=== PATIENT | female | born 1990 | race Caucasian/White ===

== ENCOUNTER 2017-04-03 19:47 | Emergency (ER) | payer BC, OTHER ==
[~2017-04-03] VITALS: Ht 157.5 cm; Wt 88.0 kg
[~2017-04-03 19:47] MED LIST: OXYC-302 PO; PREN1TAB60 PO; PREN1TAB87 PO; RANI75TA12 PO
[2017-04-03 21:21] LABS: PATH.CAST-FLAG NOT PRESENT; SPERM-FLAG NOT PRESENT; SRC-FLAG NOT PRESENT; XTAL-FLAG NOT PRESENT; YLC-FLAG NOT PRESENT
[2017-04-03 21:26] LABS: BLOOD UREA NITROGEN 7 mg/dL (7-18)
[2017-04-03 21:30] LABS: ASPARTATE AMINO TRANSFERASE 15 U/L (15-37)
[2017-04-03 22:46] VITALS: BP 117/80
== END 2017-04-03 22:48 | disposition home or self-care (01) ==
LOC: ED 22:42
DX: O20.0 Threatened abortion (principal)
CPT/HCPCS: 36415; 76801; 80053; 81001; 84702; 85025; 86901; 99285

== ENCOUNTER 2017-04-06 15:20 | Emergency (ER) | payer BC ==
[~2017-04-06] VITALS: Ht 157.5 cm; Wt 88.3 kg
[2017-04-06] MEDS ORDERED: SODIUM CHLORIDE FLUSH 10ML SYR IVF ONE (15:30)
[2017-04-06] MEDS ORDERED: SODIUM CHLORIDE 0.9% 1,000ML IVBOLUS ONE (15:30)
[2017-04-06 16:40] LABS: BLOOD UREA NITROGEN 8 mg/dL (7-18)
[2017-04-06 17:50] VITALS: BP 110/72
== END 2017-04-06 17:52 | disposition home or self-care (01) ==
LOC: ED 17:01
DX: O20.0 Threatened abortion (principal)
CPT/HCPCS: 36415; 76801; 80048; 82040; 84702; 85025

== ENCOUNTER 2017-07-22 12:34 | Outpatient (CLI) | payer BC, OTHER ==
[~2017-07-22] VITALS: Ht 157.5 cm; Wt 93.2 kg
[2017-07-22 12:59] VITALS: BP 125/63
== END 2017-07-22 15:39 | disposition home or self-care (01) ==
LOC: LDOP 12:34
PROVIDERS: ATTEND Student in an Organized Health Care Education/Training Program
DX: O26.893 Other specified pregnancy related conditions, third trimester (principal); O60.03 Preterm labor without delivery, third trimester; R10.9 Unspecified abdominal pain; Z3A.28 28 weeks gestation of pregnancy
CPT/HCPCS: 36415; 59025; 81001; 82731; 87086; 99211; G0463

== ENCOUNTER 2017-10-08 13:49 | Inpatient (IN) | payer OTHER, BC ==
[~2017-10-08] VITALS: Ht 157.5 cm; Wt 99.5 kg
[2017-10-08 14:00] VITALS: BP 114/69
[2017-10-08] MEDS ORDERED: METOCLOPRAMIDE 5 MG/ML, 2ML IV ONE (14:00)
[2017-10-08] MEDS ORDERED: LACTATED RINGERS 1,000 ML IVBOLUS ONE (14:00)
[2017-10-08] MEDS ORDERED: SODIUM CITRATE/CITRIC ACID 30 ML UDC PO ONE (14:00)
[2017-10-08] MEDS ORDERED: OXYTOCIN 30U/ 0.9% NaCL 500ML 500 ML ONE (14:01)
[2017-10-08] MEDS ORDERED: NEWBORN KIT ONE (14:01)
[2017-10-08] MEDS ORDERED: SODIUM CITRATE/CITRIC ACID 30 ML UDC ONE (14:02)
[2017-10-08] MEDS ORDERED: METOCLOPRAMIDE 5 MG/ML, 2ML ONE (14:02)
[2017-10-08 14:35] LABS: HEMATOCRIT 33.8 % (34.6-47.8); HEMOGLOBIN 11.5 g/dL (11.7-16.4); WHITE BLOOD COUNT 8.6 x10^3/uL (3.4-10)
[2017-10-08] MEDS ORDERED: CALC300T5 PO (14:35)
[2017-10-08] MEDS: LACTATED RINGERS 1,000 ML IV SCH ×6 (15:12→23:53)
[2017-10-08] MEDS ORDERED: OXYTOCIN 10 UNITS/ML, 1ML ONE (15:26)
[2017-10-08] MEDS ORDERED: FENTANYL PF 100 MCG/2ML ONE (15:26)
[2017-10-08] MEDS ORDERED: ONDANSETRON 2MG/ML, 2ML ONE (15:26)
[2017-10-08] MEDS ORDERED: HYDROmorphone 2 MG/ML, 1ML ONE (15:26)
[2017-10-08] MEDS ORDERED: CEFAZOLIN 1,000 MG ONE (15:26)
[2017-10-08] MEDS: OXYTOCIN 30U/ 0.9% NaCL 500ML 500 ML IV SCH ×3 (17:02→23:53)
[2017-10-08] MEDS ORDERED: MISOPROSTOL 200 MCG TABLET PR PRN (17:30)
[2017-10-08] MEDS ORDERED: morphine SULFATE 10 MG/ML, 1ML IVPush PRN (17:30)
[2017-10-08] MEDS ORDERED: MEPERIDINE/PF 50 MG/ML IVPush PRN (17:30)
[2017-10-08] MEDS ORDERED: METOCLOPRAMIDE 5 MG/ML, 2ML IV PRN (17:30)
[2017-10-08] MEDS ORDERED: HYDROcodone/APAP 5/325 TABLET PO PRN (17:30)
[2017-10-08] MEDS ORDERED: ONDANSETRON 2MG/ML, 2ML IV PRN (17:30)
[2017-10-08] MEDS: KETOROLAC 30 MG/1 ML IM SCH ×2 (17:30→23:30)
[2017-10-08] MEDS ORDERED: BISACODYL 10 MG SUPP PR PRN (17:30)
[2017-10-08] MEDS ORDERED: ACETAMINOPHEN 325 MG TABLET PO PRN (17:30)
[2017-10-08] MEDS ORDERED: KETOROLAC 30 MG/1 ML ONE (18:36)
[2017-10-08] MEDS: KETOROLAC 30 MG/1 ML IV SCH (18:38)
[2017-10-08 19:25] VITALS: BP 116/92
[2017-10-08] MEDS: OXYcodone/APAP 5/325MG TABLET PO PRN (20:00)
[2017-10-09 00:10] VITALS: BP 110/62
[2017-10-09] MEDS: KETOROLAC 30 MG/1 ML IV SCH ×5 (00:19→23:49)
[2017-10-09] MEDS: OXYcodone/APAP 5/325MG TABLET PO PRN ×5 (00:19→20:32)
[2017-10-09] MEDS: LACTATED RINGERS 1,000 ML IV SCH ×11 (01:02→23:02)
[2017-10-09 01:16] LABS: HEMATOCRIT 31.1 % (34.6-47.8); HEMOGLOBIN 10.4 g/dL (11.7-16.4); WHITE BLOOD COUNT 13.1 x10^3/uL (3.4-10)
[2017-10-09] MEDS: OXYTOCIN 30U/ 0.9% NaCL 500ML 500 ML IV SCH ×5 (03:02→23:02)
[2017-10-09 05:15] VITALS: BP 101/53
[2017-10-09] MEDS: KETOROLAC 30 MG/1 ML IM SCH ×4 (05:30→23:30)
[2017-10-09 06:45] VITALS: BP 101/65
[2017-10-09] MEDS: DOCUSATE 100 MG CAPSULE PO PRN ×2 (08:25→20:32)
[2017-10-09] MEDS ORDERED: PRENATAL VIT/IRON/FA 1 EACH TABLET PO SCH (09:00)
[2017-10-09 11:45] VITALS: BP 107/67
[2017-10-09] MEDS: IBUPROFEN 600 MG TABLET PO PRN (17:47)
[2017-10-09 20:30] VITALS: BP 116/72
[2017-10-10] MEDS: OXYcodone/APAP 5/325MG TABLET PO PRN ×2 (00:31→04:31)
[2017-10-10] MEDS: IBUPROFEN 600 MG TABLET PO PRN (00:31)
[2017-10-10] MEDS: LACTATED RINGERS 1,000 ML IV SCH ×4 (01:02→08:00)
[2017-10-10] MEDS: KETOROLAC 30 MG/1 ML IM SCH (05:30)
[2017-10-10] MEDS: OXYTOCIN 30U/ 0.9% NaCL 500ML 500 ML IV SCH (05:57)
[2017-10-10] MEDS: KETOROLAC 30 MG/1 ML IV SCH (06:30)
[2017-10-10 07:30] VITALS: BP 109/62
[2017-10-10] MEDS ORDERED: IBUP-1222 PO (07:50)
[2017-10-10] MEDS ORDERED: OXYC-302 PO (07:51)
[2017-10-10] MEDS ORDERED: IBUPROFEN 600 MG TABLET PO PRN (17:30)
== END 2017-10-10 09:31 | disposition home or self-care (01) | DRG 766 ==
LOC: LDIP 13:49 → 2NW 19:00
PROVIDERS: ADMIT Obstetrics & Gynecology Female Pelvic Medicine and Reconstructive Surgery; ATTEND Obstetrics & Gynecology Female Pelvic Medicine and Reconstructive Surgery
PROC: 10D00Z1 Extraction of Products of Conception, Low, Open Approach (ICD-10-PCS; principal; 2017-10-08)
PROC: 0UB70ZZ Excision of Bilateral Fallopian Tubes, Open Approach (ICD-10-PCS; 2017-10-08)
DX: O34.211 Maternal care for low transverse scar from previous cesarean delivery (principal); Z30.2 Encounter for sterilization; Z37.0 Single live birth; Z3A.39 39 weeks gestation of pregnancy
CPT/HCPCS: 36415; 85025; 86850; 86900; 88302; J0690; J1170; J1885; J2175; J2405; J3010; J2590; J2765; J7120